=== PATIENT | female | born 1980 | race Caucasian/White ===

== ENCOUNTER 2020-05-08 13:28 | Emergency (ER) | payer SELFPAY ==
[2020-05-08] MEDS ORDERED: Proparacaine 0.5% Opth 15 ML BOT ONE (13:55)
[2020-05-08] MEDS ORDERED: Fluorescein Opthalmic Strip ONE (13:56)
== END 2020-05-08 14:46 | disposition home or self-care (01) ==
LOC: ERS 13:28
DX: S05.01XA Injury of conjunctiva and corneal abrasion without foreign body, right eye, initial encounter (principal); W22.8XXA Striking against or struck by other objects, initial encounter
CPT/HCPCS: 99283

== ENCOUNTER 2024-03-07 13:50 | Outpatient (CLI) | payer BC | END 2024-03-07 13:51 | disposition home or self-care (01) | LOC: CT 13:50 | PROVIDERS: ATTEND Otolaryngology | DX: J35.01 Chronic tonsillitis (principal) | CPT/HCPCS: 70491 ==